=== PATIENT | female | born 1935 | race Caucasian/White ===

== ENCOUNTER 2018-07-16 16:04 | Inpatient (IN) ==
[2018-07-16 17:58] LABS: Basophils % 0.4 % (0.0-0.8); Eosinophils # 0.1 10*3/uL (0.0-0.87); Eosinophils % 0.7 % (0.00-10.9); Hematocrit 38.5 VOL% (35.7-47.0); Hemoglobin 12.1 GM/DL (12.0-16.0); Immature Granulocytes % 0.4 %; Immature Granulocytes Absolute 0.03 #; Lymphocytes # 1.9 10*3/uL (1.4-4.0); Lymphocytes % 26.1 % (21.3-54.2); Mean Corpuscular HGB Conc 31.4 GM/DL (32-36); Mean Corpuscular Hemoglobin 29 PG (27-34); Mean Corpuscular Volume 92.5 FL (87-102); Mean Platelet Volume 10.5 FL (9.6-12.0); Monocytes # 0.7 10*3/uL (0.11-0.8); Monocytes % 9.1 % (1.7-12.7); Neutrophils # 4.6 10*3/uL (1.4-7.4); Neutrophils % 63.3 % (38.7-73.9); Platelet Count 280 T/CUMM (130-400); Red Blood Count 4.16 MC/CUMM (3.8-5.5); Red Cell Distribution Width 16.7 % (9.3-17.3); White Blood Count 7.3 T/CUMM (4-12)
[2018-07-16 18:08] LABS: PT Patient Result 10.6 SECS; Partial Thromboplastin Time 21.9 SECS (0-40)
[2018-07-16 18:19] LABS: Osmolality,Calculated 277.5 MOS/KG (273-304)
[2018-07-16] MEDS ORDERED: ONDANSETRON 4 MG/2 ML VIAL IV PRN (20:37)
[2018-07-16] MEDS ORDERED: MORPHINE 4 MG/1 ML VIAL IV PRN (20:37)
[2018-07-16] MEDS: ACETAMINOPHEN 325 MG TABLET PO PRN (22:06)
[2018-07-16] MEDS: SODIUM CHLORIDE 0.45% 1,000 ML IV SCH (22:08)
[2018-07-17] MEDS: SODIUM CHLORIDE 0.45% 1,000 ML IV SCH ×2 (07:19→16:51)
[2018-07-17] MEDS: PANTOPRAZOLE 40 MG TABLET PO SCH (08:51)
[2018-07-17] MEDS ORDERED: SODIUM CHLORIDE 0.45% 1,000 ML IV SCH (10:00)
[2018-07-17] MEDS ORDERED: MIDAZOLAM 2 MG/2 ML VIAL IV ONE (13:17)
[2018-07-17] MEDS ORDERED: ceFAZolin 1,000 MG in SYRINGE 1 EACH IV ONE (13:17)
[2018-07-17] MEDS ORDERED: fentaNYL 100 MCG/2 ML VIAL IV ONE (13:17)
[2018-07-17] MEDS ORDERED: HEPARIN/NACL 0.9% 2 UNITS/ML 2,000 ML IV ONE (13:47)
[2018-07-17] MEDS ORDERED: fentaNYL 100 MCG/2 ML VIAL ONE (14:21)
[2018-07-17] MEDS ORDERED: HEPARIN 5,000 UNIT/1 ML VIAL ONE (14:22)
[2018-07-17] MEDS ORDERED: MIDAZOLAM 2 MG/2 ML VIAL ONE (14:22)
[2018-07-17] MEDS ORDERED: ceFAZolin 1,000 MG VIAL ONE (14:31)
[2018-07-17] MEDS ORDERED: HEPARIN 5,000 UNIT/1 ML VIAL IV ONE (14:50)
[2018-07-17] MEDS ORDERED: ALTEPLASE 2 MG VIAL ONE (15:00)
[2018-07-17] MEDS ORDERED: METOPROLOL TARTRATE 5 MG/5 ML VIAL IV ONE ×2 (15:03→15:23)
[2018-07-17] MEDS ORDERED: hydrALAZINE 20 MG/1 ML VIAL ONE (15:03)
[2018-07-17 15:15] LABS: Apearance,Urine CLEAR (Clear); Bacteria,Urine Few /HPF (Few); Bilirubin,Urine Negative (Negative); Blood, Urine Small mg/dL (Negative); Glucose,Urine (UA) Negative (Negative); Ketones,Urine Negative (Negative); Nitrite,Urine Negative (Negative); Protein,Urine Negative; RBC,Urine 1 /HPF (0-4); Urine Color Straw (Yellow); Urine Specific Gravity 1.005 (1.001-1.035); Urine Urobilinogen < 2.0 EU/DL (0.2-1.0); WBC,Urine 8 /HPF (0-6)
[2018-07-17] MEDS ORDERED: hydrALAZINE 20 MG/1 ML VIAL IV ONE (15:23)
[2018-07-17] MEDS: LOSARTAN 50 MG TABLET PO SCH (19:44)
[2018-07-17] MEDS: ENOXAPARIN 40 MG/0.4 ML SYRINGE SUBCUT SCH (20:34)
[2018-07-18] MEDS: SODIUM CHLORIDE 0.45% 1,000 ML IV SCH (05:36)
[2018-07-18 05:55] LABS: Basophils % 0.4 % (0.0-0.8); Eosinophils % 0.5 % (0.00-10.9); Hematocrit 34.5 VOL% (35.7-47.0); Hemoglobin 10.9 GM/DL (12.0-16.0); Immature Granulocytes % 0.1 %; Immature Granulocytes Absolute 0.01 #; Lymphocytes # 1.6 10*3/uL (1.4-4.0); Lymphocytes % 21.2 % (21.3-54.2); Mean Corpuscular HGB Conc 31.6 GM/DL (32-36); Mean Corpuscular Hemoglobin 29 PG (27-34); Mean Corpuscular Volume 91.3 FL (87-102); Mean Platelet Volume 11.1 FL (9.6-12.0); Monocytes # 0.8 10*3/uL (0.11-0.8); Monocytes % 10.2 % (1.7-12.7); Neutrophils % 67.6 % (38.7-73.9); Platelet Count 258 T/CUMM (130-400); Red Blood Count 3.78 MC/CUMM (3.8-5.5); Red Cell Distribution Width 16.6 % (9.3-17.3); White Blood Count 7.4 T/CUMM (4-12)
[2018-07-18 06:09] LABS: Calcium 8.7 MG/DL (8.5-10.1); Osmolality,Calculated 275.4 MOS/KG (273-304); Potassium 3.4 MMOL/L (3.5-5.1)
[2018-07-18] MEDS: MAGNESIUM CHLORIDE 64 MG TABLET PO SCH (08:29)
[2018-07-18] MEDS: amLODIPine 5 MG TABLET PO SCH (08:29)
[2018-07-18] MEDS: PANTOPRAZOLE 40 MG TABLET PO SCH (08:30)
[2018-07-18] MEDS: APIXABAN 5 MG TABLET PO SCH ×2 (08:43→20:41)
[2018-07-18] MEDS ORDERED: METOPROLOL TARTRATE 25 MG TABLET PO SCH (09:00)
[2018-07-18] MEDS: POTASSIUM CHLORIDE 20 MEQ TABLET PO PRN ×3 (12:05→16:14)
[2018-07-18] MEDS ORDERED: METOPROLOL TARTRATE 25 MG TABLET PO ONE (14:24)
[2018-07-18] MEDS: LOSARTAN 50 MG TABLET PO SCH (18:42)
[2018-07-18] MEDS ORDERED: POTASSIUM CHLORIDE 20 MEQ TABLET PO ONE (18:52)
[2018-07-18] MEDS: ENOXAPARIN 40 MG/0.4 ML SYRINGE SUBCUT SCH (20:41)
[2018-07-19 04:57] LABS: Basophils % 0.4 % (0.0-0.8); Eosinophils # 0.1 10*3/uL (0.0-0.87); Eosinophils % 1.9 % (0.00-10.9); Hematocrit 34.9 VOL% (35.7-47.0); Hemoglobin 10.9 GM/DL (12.0-16.0); Immature Granulocytes % 0.4 %; Immature Granulocytes Absolute 0.03 #; Lymphocytes # 1.7 10*3/uL (1.4-4.0); Lymphocytes % 25.1 % (21.3-54.2); Mean Corpuscular HGB Conc 31.2 GM/DL (32-36); Mean Corpuscular Hemoglobin 29 PG (27-34); Mean Corpuscular Volume 92.6 FL (87-102); Mean Platelet Volume 11.3 FL (9.6-12.0); Monocytes # 0.8 10*3/uL (0.11-0.8); Monocytes % 12.2 % (1.7-12.7); Platelet Count 250 T/CUMM (130-400); Red Blood Count 3.77 MC/CUMM (3.8-5.5); Red Cell Distribution Width 16.8 % (9.3-17.3); White Blood Count 6.7 T/CUMM (4-12)
[2018-07-19 05:15] LABS: Calcium 9.1 MG/DL (8.5-10.1); Osmolality,Calculated 281.1 MOS/KG (273-304); Potassium 4.7 MMOL/L (3.5-5.1)
[2018-07-19] MEDS: PANTOPRAZOLE 40 MG TABLET PO SCH (08:47)
[2018-07-19] MEDS: APIXABAN 5 MG TABLET PO SCH ×2 (08:47→20:59)
[2018-07-19] MEDS: MAGNESIUM CHLORIDE 64 MG TABLET PO SCH (08:47)
[2018-07-19] MEDS: METOPROLOL TARTRATE 50 MG TABLET PO SCH (08:47)
[2018-07-19] MEDS: amLODIPine 5 MG TABLET PO SCH (08:47)
[2018-07-19] MEDS: ENOXAPARIN 40 MG/0.4 ML SYRINGE SUBCUT SCH (20:59)
[2018-07-19] MEDS: LOSARTAN 50 MG TABLET PO SCH (20:59)
[2018-07-20] MEDS: MAGNESIUM CHLORIDE 64 MG TABLET PO SCH (09:08)
[2018-07-20] MEDS: amLODIPine 5 MG TABLET PO SCH (09:08)
[2018-07-20] MEDS: ACETAMINOPHEN 325 MG TABLET PO PRN (09:08)
[2018-07-20] MEDS: METOPROLOL TARTRATE 50 MG TABLET PO SCH (09:09)
[2018-07-20] MEDS: APIXABAN 5 MG TABLET PO SCH (09:09)
[2018-07-20] MEDS: PANTOPRAZOLE 40 MG TABLET PO SCH (09:09)
[2018-07-20 15:45] VITALS: BP 127/78
== END 2018-07-20 19:18 | disposition home or self-care (01) | DRG 272 ==
LOC: N.ED 16:04 → N.EDINP 19:38 → N.3E 20:35 → N.ICU 07-17 16:23 → N.3E 07-19 10:52
PROVIDERS: ADMIT Surgery; ATTEND Surgery

== ENCOUNTER 2018-07-28 07:34 | Inpatient (IN) ==
[2018-07-28] MEDS ORDERED: ONDANSETRON 4 MG/2 ML VIAL IV STA (08:00)
[2018-07-28 08:24] LABS: Basophils % 0.4 % (0.0-0.8); Eosinophils % 0.5 % (0.00-10.9); Hematocrit 38.3 VOL% (35.7-47.0); Hemoglobin 12.2 GM/DL (12.0-16.0); Immature Granulocytes % 0.4 %; Immature Granulocytes Absolute 0.03 #; Lymphocytes # 1.6 10*3/uL (1.4-4.0); Lymphocytes % 21.1 % (21.3-54.2); Mean Corpuscular HGB Conc 31.9 GM/DL (32-36); Mean Corpuscular Hemoglobin 29 PG (27-34); Mean Corpuscular Volume 90.5 FL (87-102); Monocytes # 0.5 10*3/uL (0.11-0.8); Monocytes % 6.8 % (1.7-12.7); Neutrophils # 5.3 10*3/uL (1.4-7.4); Neutrophils % 70.8 % (38.7-73.9); Platelet Count 370 T/CUMM (130-400); Red Blood Count 4.23 MC/CUMM (3.8-5.5); Red Cell Distribution Width 15.6 % (9.3-17.3); White Blood Count 7.5 T/CUMM (4-12)
[2018-07-28 08:54] LABS: Calcium 9.6 MG/DL (8.5-10.1); Osmolality,Calculated 272.8 MOS/KG (273-304); Potassium 3.4 MMOL/L (3.5-5.1)
[2018-07-28] MEDS ORDERED: SODIUM CHLORIDE 0.9% 1,000 ML IV STA (10:07)
[2018-07-28] MEDS ORDERED: BISACODYL 5 MG TABLET PO PRN (12:57)
[2018-07-28] MEDS ORDERED: ONDANSETRON 4 MG/2 ML VIAL IV PRN (12:57)
[2018-07-28] MEDS ORDERED: traZODone 50 MG TABLET PO PRN (12:57)
[2018-07-28 17:04] LABS: Apearance,Urine CLEAR (Clear); Bilirubin,Urine Negative (Negative); Blood, Urine Small mg/dL (Negative); Glucose,Urine (UA) Negative (Negative); Hyaline Casts,Urine 1 /LPF (0-3); Ketones,Urine 5 mg/dL (Negative); Mucus,Urine Occasional /LPF (Occasional); Nitrite,Urine Negative (Negative); Protein,Urine Negative; RBC,Urine 2 /HPF (0-4); Squamous Epithelial Cell,Urine Occasional /HPF (0-10); Urine Color Straw (Yellow); Urine Urobilinogen < 2.0 EU/DL (0.2-1.0); WBC,Urine 2 /HPF (0-6)
[2018-07-28] MEDS: LOSARTAN 50 MG TABLET PO SCH (20:34)
[2018-07-28] MEDS ORDERED: APIXABAN 5 MG TABLET PO SCH (21:00)
[2018-07-28 21:22] LABS: INR 1.6; PT Patient Result 17.3 SECS
[2018-07-28] MEDS: WARFARIN 3 MG TABLET PO SCH (21:59)
[2018-07-29] MEDS ORDERED: cloNIDine 0.1 MG TABLET PO ONE (00:35)
[2018-07-29 05:49] LABS: Albumin 2.8 G/DL (3.4-5.0); Bilirubin,Total 0.6 MG/DL (0.2-1.0); Calcium 8.9 MG/DL (8.5-10.1); Osmolality,Calculated 276.4 MOS/KG (273-304); Potassium 3.4 MMOL/L (3.5-5.1); Total Protein 6.3 G/DL (6.4-8.3)
[2018-07-29] MEDS ORDERED: METOPROLOL TARTRATE 25 MG TABLET PO SCH (09:00)
[2018-07-29] MEDS: PANTOPRAZOLE 40 MG TABLET PO SCH (10:04)
[2018-07-29] MEDS: POTASSIUM CHLORIDE 20 MEQ TABLET PO PRN ×3 (10:17→14:48)
[2018-07-29] MEDS: APIXABAN 5 MG TABLET PO SCH ×2 (15:52→21:09)
[2018-07-29] MEDS: WARFARIN 3 MG TABLET PO SCH (18:06)
[2018-07-29] MEDS: METOPROLOL TARTRATE 25 MG TABLET PO SCH (21:08)
[2018-07-29] MEDS: ASPIRIN CHEW 81 MG TABLET PO SCH (21:08)
[2018-07-29] MEDS: LOSARTAN 50 MG TABLET PO SCH (21:08)
[2018-07-30 08:08] LABS: Calcium 8.9 MG/DL (8.5-10.1); Osmolality,Calculated 276.5 MOS/KG (273-304)
[2018-07-30 08:27] LABS: INR 2.2
[2018-07-30 08:30] LABS: PT Patient Result 23.4 SECS
[2018-07-30] MEDS: APIXABAN 5 MG TABLET PO SCH (09:38)
[2018-07-30] MEDS: PANTOPRAZOLE 40 MG TABLET PO SCH (09:39)
[2018-07-30] MEDS: amLODIPine 5 MG TABLET PO SCH (09:39)
[2018-07-30] MEDS: METOPROLOL TARTRATE 25 MG TABLET PO SCH ×2 (09:39→20:56)
[2018-07-30] MEDS: MAGNESIUM CHLORIDE 64 MG TABLET PO SCH (09:39)
[2018-07-30] MEDS: WARFARIN 3 MG TABLET PO SCH (17:31)
[2018-07-30] MEDS: LOSARTAN 50 MG TABLET PO SCH (20:55)
[2018-07-30] MEDS: ASPIRIN CHEW 81 MG TABLET PO SCH (20:56)
[2018-07-30] MEDS ORDERED: cloNIDine 0.1 MG TABLET PO PRN (23:10)
[2018-07-31 07:33] LABS: INR 2.3
[2018-07-31] MEDS: amLODIPine 5 MG TABLET PO SCH (08:29)
[2018-07-31] MEDS: METOPROLOL TARTRATE 25 MG TABLET PO SCH (08:29)
[2018-07-31] MEDS: PANTOPRAZOLE 40 MG TABLET PO SCH (08:29)
[2018-07-31] MEDS: MAGNESIUM CHLORIDE 64 MG TABLET PO SCH (08:29)
[2018-07-31] MEDS ORDERED: ENOXAPARIN 60 MG/0.6 ML SYRINGE SUBCUT SCH (09:00)
[2018-07-31 11:50] VITALS: BP 121/88
== END 2018-07-31 13:28 | disposition home health service (06) | DRG 392 ==
LOC: N.EDINP 07:34 → N.ED 07:34 → SUATTDRO 12:19 → N.2E 13:03
PROVIDERS: ADMIT Internal Medicine Cardiovascular Disease; ATTEND Internal Medicine

== ENCOUNTER 2019-09-29 12:42 | Observation (INO) ==
[2019-09-29] MEDS ORDERED: MORPHINE 4 MG/1 ML VIAL IV STA (13:42)
[2019-09-29] MEDS ORDERED: ASPIRIN 325 MG TABLET PO STA (13:42)
[2019-09-29] MEDS ORDERED: NITROGLYCERIN 2% OINT 1 INCH/GM PACK TOP STA (13:42)
[2019-09-29] MEDS ORDERED: ONDANSETRON 4 MG/2 ML VIAL IV STA (13:42)
[2019-09-29] MEDS ORDERED: ALUM/MAG/SIMETH/LIDO VISC 1:1 30 ML BOTTLE PO STA (13:42)
[2019-09-29 13:57] LABS: Basophils % 0.4 % (0.0-0.8); Eosinophils % 0.5 % (0.00-10.9); Hematocrit 45.9 VOL% (35.7-47.0); Hemoglobin 14.7 GM/DL (12.0-16.0); Immature Granulocytes % 0.3 %; Immature Granulocytes Absolute 0.02 #; Lymphocytes # 1.5 10*3/uL (1.4-4.0); Lymphocytes % 19.4 % (21.3-54.2); Mean Corpuscular Volume 94.8 FL (87-102); Mean Platelet Volume 11.6 FL (9.6-12.0); Monocytes % 8.5 % (1.7-12.7); Neutrophils % 70.9 % (38.7-73.9); Platelet Count 209 T/CUMM (130-400); Red Blood Count 4.84 MC/CUMM (3.8-5.5); Red Cell Distribution Width 13.8 % (9.3-17.3); White Blood Count 7.8 T/CUMM (4-12)
[2019-09-29 14:02] LABS: INR 1.9; PT Patient Result 20.6 SECS (9.6-12.2)
[2019-09-29 14:04] LABS: Albumin 3.6 G/DL (3.4-5.0); Bilirubin,Total 0.4 MG/DL (0.2-1.0); Calcium 9.8 MG/DL (8.5-10.1); Osmolality,Calculated 276.7 MOS/KG (273-304); Total Protein 7.7 G/DL (6.4-8.3)
[2019-09-29 15:05] LABS: Apearance,Urine Slightly Hazy (Clear); Bacteria,Urine Occasional /HPF (Few); Bilirubin,Urine Negative (Negative); Blood, Urine Moderate mg/dL (Negative); Glucose,Urine (UA) Negative (Negative); Ketones,Urine Negative (Negative); Mucus,Urine Few /LPF (Occasional); Nitrite,Urine Negative (Negative); Protein,Urine Negative; RBC,Urine 8 /HPF (0-4); Squamous Epithelial Cell,Urine Occasional /HPF (0-10); Urine Color Yellow (Yellow); Urine Specific Gravity 1.008 (1.001-1.035); Urine Urobilinogen < 2.0 EU/DL (0.2-1.0); WBC,Urine 108 /HPF (0-6)
[2019-09-29] MEDS ORDERED: ACETAMINOPHEN 325 MG TABLET PO PRN (15:41)
[2019-09-29] MEDS ORDERED: DOCUSATE SODIUM 100 MG CAPSULE PO PRN (15:41)
[2019-09-29] MEDS ORDERED: MORPHINE 4 MG/1 ML VIAL IV PRN (15:41)
[2019-09-29] MEDS ORDERED: ONDANSETRON 4 MG/2 ML VIAL IV PRN (15:41)
[2019-09-29] MEDS: PANTOPRAZOLE 40 MG TABLET PO SCH (17:35)
[2019-09-29] MEDS ORDERED: WARFARIN 3 MG TABLET PO SCH (18:00)
[2019-09-29 18:43] LABS: Troponin I < 0.015 NG/ML (0.00-0.045)
[2019-09-29] MEDS: ACETAMINOPHEN 325 MG TABLET PO SCH ×2 (20:17→20:22)
[2019-09-29] MEDS: traMADol 50 MG TABLET PO SCH ×2 (20:17→20:22)
[2019-09-29] MEDS: GABAPENTIN 100 MG CAPSULE PO SCH ×2 (20:17→20:22)
[2019-09-29] MEDS ORDERED: GABAPENTIN 100 MG CAPSULE PO SCH (21:00)
[2019-09-29] MEDS ORDERED: traMADol 50 MG TABLET PO SCH (21:00)
[2019-09-29] MEDS ORDERED: ACETAMINOPHEN 325 MG TABLET PO SCH (21:00)
[2019-09-29] MEDS ORDERED: LOSARTAN 50 MG TABLET PO SCH (21:00)
[2019-09-29 21:14] LABS: Troponin I < 0.015 NG/ML (0.00-0.045)
[2019-09-30 04:17] LABS: Calcium 9.2 MG/DL (8.5-10.1); Osmolality,Calculated 279.7 MOS/KG (273-304); Risk Ratio 2.94; VLDL CHOLESTEROL 20.2 MG/DL
[2019-09-30] MEDS ORDERED: SODIUM CHLORIDE 0.45% 500 ML IV ONE (08:13)
[2019-09-30 08:28] VITALS: BP 146/97
[2019-09-30] MEDS: ACETAMINOPHEN 325 MG TABLET PO SCH (08:52)
[2019-09-30] MEDS: traMADol 50 MG TABLET PO SCH (08:52)
[2019-09-30] MEDS: PANTOPRAZOLE 40 MG TABLET PO SCH (08:53)
[2019-09-30] MEDS: GABAPENTIN 100 MG CAPSULE PO SCH (08:53)
[2019-09-30] MEDS ORDERED: METOPROLOL TARTRATE 25 MG TABLET PO SCH (09:00)
[2019-09-30] MEDS ORDERED: MAGNESIUM CHLORIDE 64 MG TABLET PO SCH (09:00)
[2019-09-30] MEDS ORDERED: amLODIPine 5 MG TABLET PO SCH (09:00)
== END 2019-09-30 13:08 | disposition home health service (06) ==
LOC: N.ED 12:42 → N.EDINP 12:42 → N.2W 16:50
PROVIDERS: ADMIT Internal Medicine; ATTEND Internal Medicine

== ENCOUNTER 2020-01-28 12:09 | Inpatient (IN) ==
[2020-01-28] MEDS ORDERED: HYDROmorphone 2 MG/1 ML VIAL IV STA (12:38)
[2020-01-28] MEDS ORDERED: ONDANSETRON 4 MG/2 ML VIAL IV STA (12:38)
[2020-01-28] MEDS ORDERED: ONDANSETRON 4 MG/2 ML VIAL IV PRN (13:02)
[2020-01-28] MEDS ORDERED: ACETAMINOPHEN 325 MG TABLET PO PRN ×2 (13:02→13:06)
[2020-01-28] MEDS ORDERED: BISACODYL 5 MG TABLET PO PRN (13:02)
[2020-01-28 13:19] LABS: Basophils % 0.2 % (0.0-0.8); Eosinophils % 0.1 % (0.00-10.9); Hematocrit 41.5 VOL% (35.7-47.0); Hemoglobin 13.2 GM/DL (12.0-16.0); Immature Granulocytes % 0.3 %; Immature Granulocytes Absolute 0.03 #; Lymphocytes # 1.1 10*3/uL (1.4-4.0); Lymphocytes % 11.2 % (21.3-54.2); Mean Corpuscular HGB Conc 31.8 GM/DL (32-36); Mean Corpuscular Volume 93.7 FL (87-102); Mean Platelet Volume 9.9 FL (9.6-12.0); Monocytes % 9.2 % (1.7-12.7); Platelet Count 399 T/CUMM (130-400); Red Blood Count 4.43 MC/CUMM (3.8-5.5); Red Cell Distribution Width 13.5 % (9.3-17.3); White Blood Count 9.9 T/CUMM (4-12)
[2020-01-28] MEDS ORDERED: HEPARIN 5,000 UNIT/1 ML VIAL ONE (13:25)
[2020-01-28 13:31] LABS: INR 1.1; PT Patient Result 11.3 SECS (9.8-11.9); Partial Thromboplastin Time 24.6 SECS (23.9-33.8)
[2020-01-28] MEDS ORDERED: HEPARIN 5,000 UNIT/1 ML VIAL SUBCUT STA (13:31)
[2020-01-28] MEDS ORDERED: HEPARIN 1,000 UNIT/1 ML VIAL IV STA (13:33)
[2020-01-28 13:44] LABS: Bilirubin,Total 0.8 MG/DL (0.2-1.0); Calcium 9.6 MG/DL (8.5-10.1); Osmolality,Calculated 267.4 MOS/KG (273-304); Total Protein 8.1 G/DL (6.4-8.3)
[2020-01-28] MEDS: LACTATED RINGERS 1,000 ML IV SCH (15:20)
[2020-01-28 16:29] LABS: Apearance,Urine Slightly Hazy (Clear); Bacteria,Urine Occasional /HPF (Few); Bilirubin,Urine Negative (Negative); Blood, Urine Small mg/dL (Negative); Glucose,Urine (UA) Negative (Negative); Ketones,Urine 5 mg/dL (Negative); Mucus,Urine Few /LPF (Occasional); Nitrite,Urine Negative (Negative); Protein,Urine 30 MG/DL; RBC,Urine 3 /HPF (0-4); Squamous Epithelial Cell,Urine Occasional /HPF (0-10); Urine Color Yellow (Yellow); Urine Urobilinogen < 2.0 EU/DL (0.2-1.0); WBC,Urine 95 /HPF (0-6)
[2020-01-28] MEDS ORDERED: LOSARTAN 50 MG TABLET PO SCH (21:00)
[2020-01-28] MEDS: ENOXAPARIN 30 MG/0.3 ML SYRINGE SUBCUT SCH (21:05)
[2020-01-28] MEDS: METOPROLOL TARTRATE 25 MG TABLET PO SCH (21:05)
[2020-01-28] MEDS: MELATONIN 3 MG TABLET PO SCH (21:05)
[2020-01-29 05:15] LABS: Basophils % 0.2 % (0.0-0.8); Eosinophils % 0.2 % (0.00-10.9); Hematocrit 38.9 VOL% (35.7-47.0); Hemoglobin 12.6 GM/DL (12.0-16.0); Immature Granulocytes % 0.4 %; Immature Granulocytes Absolute 0.04 #; Lymphocytes # 1.1 10*3/uL (1.4-4.0); Lymphocytes % 10.4 % (21.3-54.2); Mean Corpuscular HGB Conc 32.4 GM/DL (32-36); Mean Corpuscular Volume 92.8 FL (87-102); Mean Platelet Volume 11.2 FL (9.6-12.0); Monocytes % 8.8 % (1.7-12.7); Platelet Count 361 T/CUMM (130-400); Red Blood Count 4.19 MC/CUMM (3.8-5.5); Red Cell Distribution Width 13.6 % (9.3-17.3); White Blood Count 10.2 T/CUMM (4-12)
[2020-01-29 05:29] LABS: Calcium 9.4 MG/DL (8.5-10.1)
[2020-01-29] MEDS ORDERED: ENOXAPARIN 30 MG/0.3 ML SYRINGE SUBCUT SCH (08:00)
[2020-01-29] MEDS ORDERED: amLODIPine 5 MG TABLET PO SCH (09:00)
[2020-01-29] MEDS ORDERED: fentaNYL 100 MCG/2 ML VIAL IV ONE (09:00)
[2020-01-29] MEDS ORDERED: MIDAZOLAM 2 MG/2 ML VIAL IV ONE (09:00)
[2020-01-29] MEDS ORDERED: METOPROLOL TARTRATE 25 MG TABLET PO SCH (09:00)
[2020-01-29] MEDS ORDERED: ceFAZolin 1,000 MG in SYRINGE 1 EACH IV ONE (09:00)
[2020-01-29] MEDS: METOPROLOL TARTRATE 25 MG TABLET PO SCH (09:17)
[2020-01-29] MEDS: LOSARTAN 50 MG TABLET PO SCH ×2 (09:17→21:53)
[2020-01-29] MEDS: MAGNESIUM CHLORIDE 64 MG TABLET PO SCH (09:18)
[2020-01-29] MEDS: PANTOPRAZOLE 40 MG TABLET PO SCH (09:18)
[2020-01-29] MEDS: LACTATED RINGERS 1,000 ML IV SCH (12:42)
[2020-01-29] MEDS ORDERED: HEPARIN 5,000 UNIT/1 ML VIAL ONE ×2 (15:38→15:41)
[2020-01-29] MEDS ORDERED: HEPARIN/NACL 0.9% 2 UNITS/ML 1,000 ML IV ONE (15:39)
[2020-01-29] MEDS ORDERED: fentaNYL 100 MCG/2 ML VIAL ONE (15:40)
[2020-01-29] MEDS ORDERED: MIDAZOLAM 2 MG/2 ML VIAL ONE (15:41)
[2020-01-29] MEDS ORDERED: ALTEPLASE 2 MG VIAL ONE ×3 (16:30→18:19)
[2020-01-29 16:53] LABS: Apearance,Urine CLOUDY (Clear); Bilirubin,Urine Negative (Negative); Blood, Urine Small mg/dL (Negative); Glucose,Urine (UA) Negative (Negative); Ketones,Urine 20 mg/dL (Negative); Mucus,Urine Occasional /LPF (Occasional); Nitrite,Urine Negative (Negative); Protein,Urine Negative; Urine Color Yellow (Yellow); Urine Specific Gravity 1.013 (1.001-1.035); Urine Urobilinogen < 2.0 EU/DL (0.2-1.0); WBC,Urine 142 /HPF (0-6)
[2020-01-29] MEDS ORDERED: hydrALAZINE 20 MG/1 ML VIAL ONE (16:56)
[2020-01-29] MEDS ORDERED: hydrALAZINE 20 MG/1 ML VIAL IV ONE (16:58)
[2020-01-29] MEDS ORDERED: ALTEPLASE 2 MG VIAL INTRACATH ONE ×2 (16:58→17:48)
[2020-01-29] MEDS: hydrALAZINE 20 MG/1 ML VIAL IV PRN ×2 (17:00→17:20)
[2020-01-29] MEDS ORDERED: METOPROLOL TARTRATE 5 MG/5 ML VIAL IV ONE (17:26)
[2020-01-29] MEDS ORDERED: METOPROLOL TARTRATE 5 MG/5 ML VIAL IV PRN (17:36)
[2020-01-29] MEDS ORDERED: HEPARIN 5,000 UNIT/1 ML VIAL IV PRN (17:37)
[2020-01-29] MEDS: METOPROLOL TARTRATE 50 MG TABLET PO SCH (21:53)
[2020-01-29] MEDS: MELATONIN 3 MG TABLET PO SCH (21:53)
[2020-01-29] MEDS: ENOXAPARIN 30 MG/0.3 ML SYRINGE SUBCUT SCH (21:54)
[2020-01-29] MEDS ORDERED: cefTRIAXone 500 MG in SYRINGE 1 EACH IV SCH (23:30)
[2020-01-29] MEDS: cloNIDine 0.1 MG TABLET PO SCH (23:48)
[2020-01-30] MEDS: cloNIDine 0.1 MG TABLET PO SCH ×2 (00:05→21:46)
[2020-01-30 05:39] LABS: Basophils % 0.1 % (0.0-0.8); Eosinophils % 0.1 % (0.00-10.9); Hemoglobin 12.1 GM/DL (12.0-16.0); Immature Granulocytes % 0.5 %; Immature Granulocytes Absolute 0.07 #; Lymphocytes # 0.8 10*3/uL (1.4-4.0); Lymphocytes % 5.5 % (21.3-54.2); Mean Corpuscular HGB Conc 31.8 GM/DL (32-36); Mean Corpuscular Volume 94.5 FL (87-102); Mean Platelet Volume 10.3 FL (9.6-12.0); Monocytes % 8.4 % (1.7-12.7); Neutrophils % 85.4 % (38.7-73.9); Platelet Count 372 T/CUMM (130-400); Red Blood Count 4.02 MC/CUMM (3.8-5.5); Red Cell Distribution Width 13.6 % (9.3-17.3); White Blood Count 14.8 T/CUMM (4-12)
[2020-01-30] MEDS: LACTATED RINGERS 1,000 ML IV SCH (05:41)
[2020-01-30 05:57] LABS: Calcium 8.9 MG/DL (8.5-10.1); Osmolality,Calculated 272.8 MOS/KG (273-304)
[2020-01-30] MEDS: PANTOPRAZOLE 40 MG TABLET PO SCH (09:59)
[2020-01-30] MEDS: METOPROLOL TARTRATE 50 MG TABLET PO SCH ×2 (09:59→21:58)
[2020-01-30] MEDS: MAGNESIUM CHLORIDE 64 MG TABLET PO SCH (09:59)
[2020-01-30] MEDS: amLODIPine 10 MG TABLET PO SCH (09:59)
[2020-01-30] MEDS: LOSARTAN 50 MG TABLET PO SCH ×2 (09:59→21:47)
[2020-01-30] MEDS ORDERED: POTASSIUM CHLORIDE INJ 20 MEQ in LACTATED RINGERS 1,000 ML IV SCH (12:00)
[2020-01-30] MEDS: POTASSIUM CHLORIDE RIDER 10 MEQ in PREMIX 1 EACH IV SCH ×3 (13:49→16:56)
[2020-01-30] MEDS: ASPIRIN EC 81 MG TABLET PO SCH (13:50)
[2020-01-30] MEDS: LEVOFLOXACIN INJ 500 MG in PREMIX 1 EACH IV SCH (14:29)
[2020-01-30] MEDS: MELATONIN 3 MG TABLET PO SCH (21:44)
[2020-01-30] MEDS: ENOXAPARIN 30 MG/0.3 ML SYRINGE SUBCUT SCH (21:59)
[2020-01-31 05:21] LABS: Basophils % 0.2 % (0.0-0.8); Hematocrit 37.3 VOL% (35.7-47.0); Hemoglobin 11.9 GM/DL (12.0-16.0); Immature Granulocytes % 0.6 %; Immature Granulocytes Absolute 0.11 #; Lymphocytes # 1.1 10*3/uL (1.4-4.0); Lymphocytes % 6.4 % (21.3-54.2); Mean Corpuscular HGB Conc 31.9 GM/DL (32-36); Mean Platelet Volume 10.6 FL (9.6-12.0); Monocytes % 9.2 % (1.7-12.7); Neutrophils % 83.6 % (38.7-73.9); Platelet Count 356 T/CUMM (130-400); Red Blood Count 3.97 MC/CUMM (3.8-5.5); Red Cell Distribution Width 13.7 % (9.3-17.3); White Blood Count 17.2 T/CUMM (4-12)
[2020-01-31 05:52] LABS: Albumin 2.5 G/DL (3.4-5.0); Bilirubin,Total 0.8 MG/DL (0.2-1.0); Calcium 9.3 MG/DL (8.5-10.1); Osmolality,Calculated 274.7 MOS/KG (273-304); Total Protein 7.2 G/DL (6.4-8.3)
[2020-01-31] MEDS: MAGNESIUM CHLORIDE 64 MG TABLET PO SCH (08:36)
[2020-01-31] MEDS: PANTOPRAZOLE 40 MG TABLET PO SCH (08:36)
[2020-01-31] MEDS: ASPIRIN EC 81 MG TABLET PO SCH (08:37)
[2020-01-31] MEDS: METOPROLOL TARTRATE 50 MG TABLET PO SCH ×2 (08:37→21:04)
[2020-01-31] MEDS: amLODIPine 10 MG TABLET PO SCH (08:37)
[2020-01-31] MEDS: LOSARTAN 50 MG TABLET PO SCH ×2 (08:37→21:04)
[2020-01-31] MEDS: LEVOFLOXACIN INJ 500 MG in PREMIX 1 EACH IV SCH (11:56)
[2020-01-31] MEDS: ENOXAPARIN 30 MG/0.3 ML SYRINGE SUBCUT SCH (21:03)
[2020-01-31] MEDS: cloNIDine 0.1 MG TABLET PO SCH (21:04)
[2020-01-31] MEDS: MELATONIN 3 MG TABLET PO SCH (21:04)
[2020-02-01 05:47] LABS: Basophils % 0.2 % (0.0-0.8); Eosinophils # 0.1 10*3/uL (0.0-0.87); Eosinophils % 0.6 % (0.00-10.9); Hematocrit 33.3 VOL% (35.7-47.0); Hemoglobin 10.9 GM/DL (12.0-16.0); Immature Granulocytes % 0.4 %; Immature Granulocytes Absolute 0.05 #; Lymphocytes # 1.4 10*3/uL (1.4-4.0); Lymphocytes % 12.1 % (21.3-54.2); Mean Corpuscular HGB Conc 32.7 GM/DL (32-36); Mean Corpuscular Volume 92.2 FL (87-102); Mean Platelet Volume 10.8 FL (9.6-12.0); Monocytes % 9.5 % (1.7-12.7); Neutrophils % 77.2 % (38.7-73.9); Platelet Count 330 T/CUMM (130-400); Red Blood Count 3.61 MC/CUMM (3.8-5.5); Red Cell Distribution Width 13.9 % (9.3-17.3); White Blood Count 11.4 T/CUMM (4-12)
[2020-02-01 06:11] LABS: Calcium 9.1 MG/DL (8.5-10.1); Osmolality,Calculated 276.5 MOS/KG (273-304)
[2020-02-01] MEDS: MAGNESIUM CHLORIDE 64 MG TABLET PO SCH (08:42)
[2020-02-01] MEDS: ASPIRIN EC 81 MG TABLET PO SCH (08:42)
[2020-02-01] MEDS: PANTOPRAZOLE 40 MG TABLET PO SCH (08:42)
[2020-02-01] MEDS: METOPROLOL TARTRATE 50 MG TABLET PO SCH ×2 (08:43→21:59)
[2020-02-01] MEDS: LOSARTAN 50 MG TABLET PO SCH ×2 (08:43→21:59)
[2020-02-01] MEDS: amLODIPine 10 MG TABLET PO SCH (08:43)
[2020-02-01] MEDS: LEVOFLOXACIN INJ 500 MG in PREMIX 1 EACH IV SCH (11:56)
[2020-02-01] MEDS: MELATONIN 3 MG TABLET PO SCH (21:58)
[2020-02-01] MEDS: ENOXAPARIN 30 MG/0.3 ML SYRINGE SUBCUT SCH (21:59)
[2020-02-02] MEDS: LOSARTAN 50 MG TABLET PO SCH ×2 (09:16→20:44)
[2020-02-02] MEDS: METOPROLOL TARTRATE 50 MG TABLET PO SCH ×2 (09:17→20:44)
[2020-02-02] MEDS: ASPIRIN EC 81 MG TABLET PO SCH (09:17)
[2020-02-02] MEDS: MAGNESIUM CHLORIDE 64 MG TABLET PO SCH (09:17)
[2020-02-02] MEDS: PANTOPRAZOLE 40 MG TABLET PO SCH (09:17)
[2020-02-02] MEDS: amLODIPine 10 MG TABLET PO SCH (09:17)
[2020-02-02] MEDS: LEVOFLOXACIN INJ 500 MG in PREMIX 1 EACH IV SCH (13:25)
[2020-02-02] MEDS: MELATONIN 3 MG TABLET PO SCH (20:43)
[2020-02-02] MEDS: ENOXAPARIN 30 MG/0.3 ML SYRINGE SUBCUT SCH (20:44)
[2020-02-03] MEDS: ASPIRIN EC 81 MG TABLET PO SCH (08:19)
[2020-02-03] MEDS: PANTOPRAZOLE 40 MG TABLET PO SCH (08:19)
[2020-02-03] MEDS: amLODIPine 10 MG TABLET PO SCH (08:19)
[2020-02-03] MEDS: MAGNESIUM CHLORIDE 64 MG TABLET PO SCH (08:19)
[2020-02-03] MEDS: METOPROLOL TARTRATE 50 MG TABLET PO SCH ×2 (08:19→21:01)
[2020-02-03] MEDS: LOSARTAN 50 MG TABLET PO SCH ×2 (08:19→21:01)
[2020-02-03] MEDS: LEVOFLOXACIN INJ 500 MG in PREMIX 1 EACH IV SCH (11:49)
[2020-02-03] MEDS: MELATONIN 3 MG TABLET PO SCH (21:01)
[2020-02-03] MEDS: ENOXAPARIN 30 MG/0.3 ML SYRINGE SUBCUT SCH (21:01)
[2020-02-04 08:10] LABS: Hematocrit 38.8 VOL% (35.7-47.0); Hemoglobin 12.8 GM/DL (12.0-16.0); Mean Corpuscular Volume 89.8 FL (87-102); Red Blood Count 4.32 MC/CUMM (3.8-5.5); Red Cell Distribution Width 14.2 % (9.3-17.3); White Blood Count 15.8 T/CUMM (4-12)
[2020-02-04 08:11] LABS: Basophils % 0.3 % (0.0-0.8); Eosinophils % 0.1 % (0.00-10.9); Immature Granulocytes % 0.6 %; Lymphocytes % 6.3 % (21.3-54.2); Mean Platelet Volume 9.9 FL (9.6-12.0); Monocytes % 7.9 % (1.7-12.7); Neutrophils % 84.8 % (38.7-73.9); Platelet Count 361 T/CUMM (130-400)
[2020-02-04] MEDS: ASPIRIN EC 81 MG TABLET PO SCH ×2 (08:15→08:22)
[2020-02-04] MEDS: LOSARTAN 50 MG TABLET PO SCH ×3 (08:16→20:57)
[2020-02-04] MEDS: PANTOPRAZOLE 40 MG TABLET PO SCH ×2 (08:16→08:23)
[2020-02-04] MEDS: MAGNESIUM CHLORIDE 64 MG TABLET PO SCH ×2 (08:16→08:23)
[2020-02-04] MEDS: METOPROLOL TARTRATE 50 MG TABLET PO SCH ×3 (08:16→20:58)
[2020-02-04] MEDS: amLODIPine 10 MG TABLET PO SCH ×2 (08:16→08:22)
[2020-02-04 08:35] LABS: Calcium 9.2 MG/DL (8.5-10.1); Osmolality,Calculated 275.8 MOS/KG (273-304)
[2020-02-04] MEDS: LEVOFLOXACIN INJ 500 MG in PREMIX 1 EACH IV SCH (11:22)
[2020-02-04] MEDS: MELATONIN 3 MG TABLET PO SCH (20:58)
[2020-02-04] MEDS: ENOXAPARIN 30 MG/0.3 ML SYRINGE SUBCUT SCH (21:17)
[2020-02-05] MEDS: LOSARTAN 50 MG TABLET PO SCH ×2 (08:25→21:23)
[2020-02-05] MEDS: amLODIPine 10 MG TABLET PO SCH (08:25)
[2020-02-05] MEDS: ASPIRIN EC 81 MG TABLET PO SCH (08:25)
[2020-02-05] MEDS: MAGNESIUM CHLORIDE 64 MG TABLET PO SCH (08:25)
[2020-02-05] MEDS: PANTOPRAZOLE 40 MG TABLET PO SCH (08:25)
[2020-02-05] MEDS: METOPROLOL TARTRATE 50 MG TABLET PO SCH ×2 (08:25→21:23)
[2020-02-05] MEDS ORDERED: ASPIRIN EC 81 MG TABLET PO SCH (09:00)
[2020-02-05] MEDS: LEVOFLOXACIN 500 MG TABLET PO SCH (10:27)
[2020-02-05] MEDS: ENOXAPARIN 30 MG/0.3 ML SYRINGE SUBCUT SCH (21:23)
[2020-02-05] MEDS: MELATONIN 3 MG TABLET PO SCH (21:23)
[2020-02-06] MEDS: LOSARTAN 50 MG TABLET PO SCH ×2 (09:57→21:07)
[2020-02-06] MEDS: MAGNESIUM CHLORIDE 64 MG TABLET PO SCH (09:57)
[2020-02-06] MEDS: ASPIRIN EC 81 MG TABLET PO SCH (09:57)
[2020-02-06] MEDS: METOPROLOL TARTRATE 50 MG TABLET PO SCH ×2 (09:57→21:07)
[2020-02-06] MEDS: LEVOFLOXACIN 500 MG TABLET PO SCH (09:57)
[2020-02-06] MEDS: PANTOPRAZOLE 40 MG TABLET PO SCH (09:57)
[2020-02-06] MEDS: amLODIPine 10 MG TABLET PO SCH (09:57)
[2020-02-06 20:38] VITALS: BP 117/65
[2020-02-06] MEDS: ENOXAPARIN 30 MG/0.3 ML SYRINGE SUBCUT SCH (21:07)
[2020-02-06] MEDS: MELATONIN 3 MG TABLET PO SCH (21:07)
== END 2020-02-06 22:40 | disposition hospice, home (50) | DRG 271 ==
LOC: N.ED 12:09 → N.EDINP 13:02 → N.3E 13:36
PROVIDERS: ADMIT Surgery; ATTEND Surgery

== ENCOUNTER 2020-03-22 11:36 | Inpatient (IN) ==
[2020-03-22 13:32] LABS: Basophils # 0.1 10*3/uL (0.0-0.2); Basophils % 0.5 % (0.0-0.8); Eosinophils % 0.3 % (0.00-10.9); Hematocrit 38.6 VOL% (35.7-47.0); Hemoglobin 11.9 GM/DL (12.0-16.0); Immature Granulocytes % 0.6 %; Immature Granulocytes Absolute 0.07 #; Lymphocytes # 1.4 10*3/uL (1.4-4.0); Lymphocytes % 12.5 % (21.3-54.2); Mean Corpuscular HGB Conc 30.8 GM/DL (32-36); Mean Platelet Volume 10.7 FL (9.6-12.0); Monocytes % 7.5 % (1.7-12.7); Neutrophils % 78.6 % (38.7-73.9); Platelet Count 393 T/CUMM (130-400); Red Blood Count 4.29 MC/CUMM (3.8-5.5); Red Cell Distribution Width 17.3 % (9.3-17.3); White Blood Count 11.1 T/CUMM (4-12)
[2020-03-22 13:45] LABS: INR 1.1; PT Patient Result 11.4 SECS (9.8-11.9); Partial Thromboplastin Time 26.5 SECS (23.9-33.8)
[2020-03-22 13:48] LABS: Albumin 2.5 G/DL (3.4-5.0); Bilirubin,Total 0.7 MG/DL (0.2-1.0); Osmolality,Calculated 281.4 MOS/KG (273-304)
[2020-03-22] MEDS ORDERED: DEXTROSE 50% 25 GM/50 ML VIAL IV PRN (16:46)
[2020-03-22] MEDS ORDERED: ACETAMINOPHEN 325 MG TABLET PO PRN (16:46)
[2020-03-22] MEDS ORDERED: GLUCAGON 1 MG VIAL IM PRN (16:46)
[2020-03-22] MEDS ORDERED: ONDANSETRON 4 MG/2 ML VIAL IV PRN (16:46)
[2020-03-23 05:48] LABS: Basophils % 0.4 % (0.0-0.8); Eosinophils % 0.3 % (0.00-10.9); Hematocrit 37.7 VOL% (35.7-47.0); Hemoglobin 11.6 GM/DL (12.0-16.0); Immature Granulocytes % 0.5 %; Immature Granulocytes Absolute 0.05 #; Lymphocytes % 9.7 % (21.3-54.2); Mean Corpuscular HGB Conc 30.8 GM/DL (32-36); Mean Corpuscular Volume 90.8 FL (87-102); Mean Platelet Volume 11.4 FL (9.6-12.0); Monocytes % 7.7 % (1.7-12.7); Neutrophils % 81.4 % (38.7-73.9); Platelet Count 383 T/CUMM (130-400); Red Blood Count 4.15 MC/CUMM (3.8-5.5); Red Cell Distribution Width 17.6 % (9.3-17.3); White Blood Count 10.6 T/CUMM (4-12)
[2020-03-23 06:12] LABS: Albumin 2.3 G/DL (3.4-5.0); Bilirubin,Total 0.7 MG/DL (0.2-1.0); Calcium 9.6 MG/DL (8.5-10.1); Osmolality,Calculated 281.3 MOS/KG (273-304); Risk Ratio 2.67; Thyroid Stimulating Hormone 1.98 uIU/ml (0.358-3.74); Total Protein 7.1 G/DL (6.4-8.3); VLDL CHOLESTEROL 17.8 MG/DL
[2020-03-23 06:14] LABS: Apearance,Urine CLEAR (Clear); Bilirubin,Urine Negative (Negative); Blood, Urine Negative (Negative); Glucose,Urine (UA) Negative (Negative); Ketones,Urine 20 mg/dL (Negative); Mucus,Urine Occasional /LPF (Occasional); Nitrite,Urine Negative (Negative); Protein,Urine 30 MG/DL; RBC,Urine 12 /HPF (0-4); Squamous Epithelial Cell,Urine Occasional /HPF (0-10); Urine Color Yellow (Yellow); Urine Specific Gravity > 1.060 (1.001-1.035); Urine Urobilinogen < 2.0 EU/DL (0.2-1.0); WBC,Urine 12 /HPF (0-6)
[2020-03-23] MEDS ORDERED: POTASSIUM CHLORIDE 20 MEQ TABLET PO ONE (07:44)
[2020-03-23] MEDS: POTASSIUM CHLORIDE RIDER 10 MEQ in PREMIX 1 EACH IV PRN ×2 (08:22→10:20)
[2020-03-23] MEDS: PANTOPRAZOLE 40 MG TABLET PO SCH (09:01)
[2020-03-23] MEDS: cefTRIAXone 1,000 MG in SYRINGE 1 EACH IV SCH (09:02)
[2020-03-23] MEDS: ALBUTEROL/IPRATROPIUM 3 ML NEB RESP TX SCH ×2 (12:48→18:50)
[2020-03-23] MEDS ORDERED: ALBUMIN 5% 12.5 GM/250 ML VIAL IV ONE (14:00)
[2020-03-23] MEDS ORDERED: CALCIUM CHLORIDE 1,000 MG/10 ML VIAL IV ONE (14:00)
[2020-03-23] MEDS ORDERED: ceFAZolin 1,000 MG VIAL ONE (14:51)
[2020-03-23] MEDS ORDERED: BUPIVACAINE MPF 0.5% /EPI 30 ML VIAL ONE (15:35)
[2020-03-23] MEDS ORDERED: SEVOFLURANE 1 UNIT/15 MINUTE INH ONE (15:35)
[2020-03-23] MEDS ORDERED: DEXMEDETOMIDINE 200 MCG/2 ML VIAL ONE (15:35)
[2020-03-23] MEDS ORDERED: ETOMIDATE 40 MG/20 ML VIAL IV ONE (15:36)
[2020-03-23] MEDS ORDERED: METOPROLOL TARTRATE 5 MG/5 ML VIAL IV ONE (15:36)
[2020-03-23] MEDS ORDERED: DEXAMETHASONE 4 MG/1 ML VIAL ONE (15:36)
[2020-03-23] MEDS ORDERED: ONDANSETRON 4 MG/2 ML VIAL ONE (15:36)
[2020-03-24] MEDS: ALBUTEROL/IPRATROPIUM 3 ML NEB RESP TX SCH ×4 (00:10→19:50)
[2020-03-24 06:21] LABS: Basophils % 0.1 % (0.0-0.8); Hematocrit 33.3 VOL% (35.7-47.0); Hemoglobin 10.1 GM/DL (12.0-16.0); Immature Granulocytes % 0.7 %; Immature Granulocytes Absolute 0.11 #; Lymphocytes # 0.6 10*3/uL (1.4-4.0); Lymphocytes % 3.7 % (21.3-54.2); Mean Corpuscular HGB Conc 30.3 GM/DL (32-36); Mean Corpuscular Volume 91.7 FL (87-102); Mean Platelet Volume 11.1 FL (9.6-12.0); Monocytes % 4.3 % (1.7-12.7); Neutrophils % 91.2 % (38.7-73.9); Platelet Count 325 T/CUMM (130-400); Red Blood Count 3.63 MC/CUMM (3.8-5.5); Red Cell Distribution Width 17.6 % (9.3-17.3); White Blood Count 15.6 T/CUMM (4-12)
[2020-03-24 06:57] LABS: Hypochromasia Slight; Lymphocytes 3 % (20-55); Ovalocytes Slight; Platelet Estimate Adequate; Segmented Neutrophils 95 % (50-85); Total Cells Counted 100
[2020-03-24 07:01] LABS: Bilirubin,Total 0.6 MG/DL (0.2-1.0); Calcium 10.2 MG/DL (8.5-10.1); Osmolality,Calculated 285.1 MOS/KG (273-304); Total Protein 7.2 G/DL (6.4-8.3)
[2020-03-24] MEDS: cefTRIAXone 1,000 MG in SYRINGE 1 EACH IV SCH (09:12)
[2020-03-24] MEDS: PANTOPRAZOLE 40 MG TABLET PO SCH (09:21)
[2020-03-24] MEDS: SODIUM CHLORIDE 0.9% 1,000 ML IV SCH (12:17)
[2020-03-25] MEDS: ALBUTEROL/IPRATROPIUM 3 ML NEB RESP TX SCH ×4 (01:20→19:27)
[2020-03-25] MEDS: SODIUM CHLORIDE 0.9% 1,000 ML IV SCH ×2 (01:48→21:14)
[2020-03-25 06:04] LABS: Basophils % 0.1 % (0.0-0.8); Eosinophils % 0.1 % (0.00-10.9); Hematocrit 29.4 VOL% (35.7-47.0); Hemoglobin 9.1 GM/DL (12.0-16.0); Immature Granulocytes % 0.7 %; Immature Granulocytes Absolute 0.09 #; Lymphocytes # 1.2 10*3/uL (1.4-4.0); Lymphocytes % 10.2 % (21.3-54.2); Mean Platelet Volume 10.6 FL (9.6-12.0); Neutrophils % 81.9 % (38.7-73.9); Platelet Count 259 T/CUMM (130-400); Red Blood Count 3.23 MC/CUMM (3.8-5.5); Red Cell Distribution Width 17.9 % (9.3-17.3); White Blood Count 12.2 T/CUMM (4-12)
[2020-03-25 06:23] LABS: Albumin 2.3 G/DL (3.4-5.0); Bilirubin,Total 1.6 MG/DL (0.2-1.0); Calcium 8.7 MG/DL (8.5-10.1); Osmolality,Calculated 279.3 MOS/KG (273-304)
[2020-03-25] MEDS ORDERED: MAGNESIUM SULF RIDER 2 GM in PREMIX 1 EACH IV PRN (07:55)
[2020-03-25] MEDS ORDERED: MAGNESIUM SULF RIDER 4 GM in PREMIX 1 EACH IV PRN (07:55)
[2020-03-25] MEDS ORDERED: POTASSIUM CHLORIDE 20 MEQ TABLET PO PRN (07:55)
[2020-03-25] MEDS: PANTOPRAZOLE 40 MG TABLET PO SCH (10:26)
[2020-03-25] MEDS: cefTRIAXone 1,000 MG in SYRINGE 1 EACH IV SCH (10:26)
[2020-03-25] MEDS: POTASSIUM CHLORIDE RIDER 10 MEQ in PREMIX 1 EACH IV PRN ×4 (15:18→21:17)
[2020-03-26] MEDS: ALBUTEROL/IPRATROPIUM 3 ML NEB RESP TX SCH ×3 (01:36→14:05)
[2020-03-26 08:04] VITALS: BP 121/94
[2020-03-26] MEDS: PANTOPRAZOLE 40 MG TABLET PO SCH (10:30)
== END 2020-03-26 14:40 | disposition hospice, home (50) | DRG 240 ==
LOC: N.ED 11:36 → N.EDINP 15:13 → N.3E 17:30
PROVIDERS: ADMIT Internal Medicine; ATTEND Internal Medicine

== ENCOUNTER 2020-06-10 18:58 | Observation (INO) ==
[2020-06-10] MEDS ORDERED: METOPROLOL TARTRATE 5 MG/5 ML VIAL IV STA (19:31)
[2020-06-10] MEDS ORDERED: SODIUM CHLORIDE 0.9% 1,000 ML IV STA (19:31)
[2020-06-10 21:37] LABS: Basophils % 0.2 % (0.0-0.8); Hematocrit 29.4 VOL% (35.7-47.0); Hemoglobin 9.9 GM/DL (12.0-16.0); Immature Granulocytes % 0.6 %; Immature Granulocytes Absolute 0.07 #; Lymphocytes # 0.4 10*3/uL (1.4-4.0); Lymphocytes % 3.1 % (21.3-54.2); Mean Corpuscular HGB Conc 33.7 GM/DL (32-36); Mean Corpuscular Volume 82.6 FL (87-102); Mean Platelet Volume 9.8 FL (9.6-12.0); Monocytes % 3.4 % (1.7-12.7); NRBC # 0.04 10*3/uL; Neutrophils % 92.7 % (38.7-73.9); Platelet Count 129 T/CUMM (130-400); Red Blood Count 3.56 MC/CUMM (3.8-5.5); Red Cell Distribution Width 21.2 % (9.3-17.3); White Blood Count 12.7 T/CUMM (4-12)
[2020-06-10 21:47] LABS: INR 1.3; PT Patient Result 13.4 SECS (9.8-11.9)
[2020-06-10 22:04] LABS: Band Neutrophils 1 % (0-10); Lymphocytes 3 % (20-55); Metamyelocytes 1 %; Segmented Neutrophils 91 % (50-85); Total Cells Counted 100
[2020-06-10 22:05] LABS: Albumin 1.5 G/DL (3.4-5.0); Bilirubin,Total 1.2 MG/DL (0.2-1.0); Calcium 8.4 MG/DL (8.5-10.1); Hypochromasia 1+; Osmolality,Calculated 295.6 MOS/KG (273-304); Ovalocytes 1+; Platelet Estimate Decreased; Thyroid Stimulating Hormone 2.06 uIU/ml (0.358-3.74); Total Protein 5.6 G/DL (6.4-8.3)
[2020-06-10] MEDS ORDERED: VANCOMYCIN INJ 1,000 MG in SODIUM CHLORIDE 0.9% 250 ML IV STA (22:19)
[2020-06-10] MEDS ORDERED: PIPERACILLIN/TAZOBACTAM 3,375 MG in SODIUM CHLORIDE 0.9% 100 ML IV STA (22:19)
[2020-06-10] MEDS ORDERED: POTASSIUM CHLORIDE RIDER 10 MEQ in PREMIX 1 EACH IV PRN (22:21)
[2020-06-11 00:14] LABS: Bacteria,Urine Occasional /HPF (Few); Blood, Urine Negative (Negative); Glucose,Urine (UA) Negative (Negative); Hyaline Casts,Urine 31 /LPF (0-3); Ketones,Urine 5 mg/dL (Negative); Mucus,Urine Few /LPF (Occasional); Nitrite,Urine Negative (Negative); Protein,Urine 30 MG/DL; RBC,Urine 1 /HPF (0-4); Squamous Epithelial Cell,Urine Occasional /HPF (0-10); Urine Appearance Slightly Hazy (Clear); Urine Color Amber (Yellow); Urine Specific Gravity 1.019 (1.001-1.035); WBC,Urine 6 /HPF (0-6)
[2020-06-11 00:16] LABS: Bilirubin,Urine Small mg/dL (Negative)
[2020-06-11] MEDS ORDERED: MORPHINE 4 MG/1 ML VIAL IV PRN ×2 (01:12→07:56)
[2020-06-11] MEDS ORDERED: guaiFENesin/DM ER 600-30 MG TABLET PO PRN (01:12)
[2020-06-11] MEDS ORDERED: GLUCAGON 1 MG VIAL IM PRN (01:12)
[2020-06-11] MEDS ORDERED: DEXTROSE 50% 25 GM/50 ML VIAL IV PRN (01:12)
[2020-06-11] MEDS ORDERED: ONDANSETRON 4 MG/2 ML VIAL IV PRN (01:12)
[2020-06-11] MEDS ORDERED: diphenhydrAMINE CAP 25 MG CAPSULE PO PRN (01:12)
[2020-06-11] MEDS ORDERED: hydrALAZINE 20 MG/1 ML VIAL IV PRN (01:12)
[2020-06-11] MEDS ORDERED: NICOTINE 21 MG/24 HR PATCH TRANSDERM PRN (01:12)
[2020-06-11] MEDS ORDERED: ACETAMINOPHEN 325 MG TABLET PO PRN (01:12)
[2020-06-11] MEDS ORDERED: SODIUM CHLORIDE 0.9% 1,000 ML IV SCH (01:30)
[2020-06-11] MEDS ORDERED: POTASSIUM CHLORIDE RIDER 10 MEQ in PREMIX 1 EACH IV PRN (02:57)
[2020-06-11] MEDS ORDERED: VANCOMYCIN INJ 1,000 MG in SODIUM CHLORIDE 0.9% 250 ML IV SCH (03:30)
[2020-06-11] MEDS ORDERED: SODIUM CHLORIDE 0.9% 500 ML IV ONE (03:40)
[2020-06-11] MEDS ORDERED: CLINDAMYCIN INJ 600 MG in PREMIX 1 EACH IV SCH (07:00)
[2020-06-11] MEDS ORDERED: DEXT 5% NACL 0.9% KCL 40 MEQ 40 MEQ/1,000 ML BAG IV SCH (07:00)
[2020-06-11] MEDS ORDERED: MORPHINE 4 MG/1 ML VIAL IM ONE (07:59)
[2020-06-11] MEDS ORDERED: POTASSIUM CHLORIDE INJ 40 MEQ in DEXTROSE 5% 1,000 ML IV SCH (08:00)
[2020-06-11] MEDS ORDERED: MORPHINE 4 MG/1 ML VIAL SUBCUT PRN (08:06)
[2020-06-11] MEDS ORDERED: fentaNYL 25 MCG/HR PATCH TRANSDERM SCH (09:00)
[2020-06-11] MEDS ORDERED: LORazepam 1 MG TABLET PO ONE (15:05)
[2020-06-11] MEDS ORDERED: LORazepam 1 MG TABLET PO PRN (15:06)
[2020-06-11] MEDS ORDERED: MORPHINE 4 MG/1 ML VIAL SUBCUT SCH (15:30)
[2020-06-11] MEDS: MORPHINE 4 MG/1 ML VIAL SUBCUT SCH ×2 (16:03→21:22)
[2020-06-11] MEDS ORDERED: LORazepam 1 MG TABLET PO SCH (21:00)
[2020-06-11 22:15] VITALS: BP 53/38
== END 2020-06-12 00:59 | disposition expired ==
LOC: EDBD → EDUNIT# → N.EDINP 18:58 → N.ED 18:58 → N.TELEN 06-11 02:20
PROVIDERS: ADMIT Internal Medicine; ATTEND Internal Medicine